=== PATIENT | male | born 1970 ===

== ENCOUNTER 2020-06-05 08:05 | Emergency (ER) | payer OTHER ==
[~2020-06-05] VITALS: Ht 175.3 cm; Wt 104.3 kg
[2020-06-05] MEDS ORDERED: NAPR500 PO (08:14)
[2020-06-05] MEDS ORDERED: LOSARTAN POTAS100 MG PO (08:14)
[2020-06-05] MEDS ORDERED: SULTRIDS PO (10:20)
[2020-06-05] MEDS ORDERED: HYDR1TAB94 PO (10:20)
[2020-06-05] MEDS ORDERED: CEPH500 PO (10:20)
== END 2020-06-05 10:34 | disposition home or self-care (01) ==
LOC: ER 08:05
DX: M25.572 Pain in left ankle and joints of left foot (principal); I10 Essential (primary) hypertension; E78.5 Hyperlipidemia, unspecified; Z79.899 Other long term (current) drug therapy
CPT/HCPCS: 73610; 84550; 99283-25